=== PATIENT | male | born 1995 ===

== ENCOUNTER 2022-05-13 12:49 | Outpatient (CLI) | payer BC, SELFPAY ==
[2022-05-13 22:14] LABS: Albumin* 4.8 g/dL (3.3-5.0); Chloride* 106 mmol/L (96-114); Sodium* 141 mmol/L (135-149)
[2022-05-13 22:15] LABS: Potassium* 4.7 mmol/L (3.6-5.1)
[2022-05-13 22:17] LABS: Alkaline Phosphatase* 98 U/L (40-150); Aspartate Amino Transferase* 50 U/L (12-35); Bilirubin Total* 0.6 mg/dL (0.1-1.5); Blood Urea Nitrogen* 17 mg/dL (5-24); Carbon Dioxide* 22 mmol/L (20-32); Cholesterol* 211 mg/dL (90-199); Creatinine* 0.8 mg/dL (0.5-1.5); Estimated Glomerular Filt Rate 124 ml/min; Glucose* 78 mg/dL (60-115); Total Protein* 8.1 g/dL (6.0-8.3)
[2022-05-13 22:18] LABS: Alanine Aminotransferase* 91 U/L (4-50); Calcium* 9.8 mg/dL (8.4-10.6); HDL Cholesterol* 57 mg/dL (>=40); LDL Cholesterol Calculated 120 mg/dL (<100); Triglycerides* 169 mg/dL (40-149)
[2022-05-13 22:27] LABS: Vitamin D 25 Hydroxy* 28 ng/mL (30-80)
[2022-05-13 22:41] LABS: TSH With Reflex to FT4* 0.874 uIU/mL (0.270-4.200)
[2022-05-15 23:06] LABS: Anti-Nuclear Ab(ANA)IgG ELISA None Detected (None Detected)
== END 2022-05-13 12:50 | disposition home or self-care (01) ==
PROVIDERS: PCP Family Medicine; Visit Provider Family Medicine
DX: Z00.00 Encounter for general adult medical examination without abnormal findings (principal); R53.83 Other fatigue; R03.0 Elevated blood-pressure reading, without diagnosis of hypertension; Z82.61 Family history of arthritis; Z84.0 Family history of diseases of the skin and subcutaneous tissue; Z13.6 Encounter for screening for cardiovascular disorders
CPT/HCPCS: 80053; 80061; 82306; 84443; 86039